=== PATIENT | female | born 1980 | race American Indian/Alaskan Native ===

== ENCOUNTER 2017-03-28 16:36 | Emergency (ER) | payer SELFPAY ==
[2017-03-28] MEDS ORDERED: TRIPLE ANTIBIOTIC TP ONE (18:52)
[2017-03-28] MEDS ORDERED: NORCO 5/325 PO ONE (18:52)
[2017-03-28] MEDS ORDERED: NACL 0.9% IR ONE (18:52)
[2017-03-28] MEDS ORDERED: ZOFRAN ODT PO ONE (18:52)
[2017-03-28] MEDS ORDERED: XYLOCAINE 1% 20 mL INFILTRATI ONE (18:52)
[2017-03-28] MEDS ORDERED: BOOSTRIX IM ONE (18:52)
[2017-03-28] MEDS ORDERED: AUGMENTIN 875 MG PO ONE (18:52)
--- NOTE | 2017-03-28 19:09 | Emergency Department Report ---
ED Animal Bite HPI - General Chief Complaint: Animal Bite Stated Complaint: DOG BITE RT ARM Time Seen by Provider: 03/28/17 18:41 Source: patient Mode of arrival: Ambulatory Limitations: No Limitations - History of Present Illness Initial Comments: PT states she was outside and she saw that her neighbor's 7 month old puppy was stuck in a fence. PT states she tried to help free the dog but she thinks he was in pain and he bit her R arm. PT states she cleanses site twice with peroxide. PT states she applied a dressing. PT states animal control was notified and the dog was taken away. PT states the dog is a pittbull and had shots in November but does not think dog had rabies shot. MD Complaint: animal bite -: Sudden, hour(s) Time: 14:00 Right: Elbow Animal: dog Animal Control Notified: Yes Description: household pet, immunizations unknown Mechanism: bite Pain Description: other (stings ) Context: other Associated Symptoms: bleeding. denies: erythema, loss of consciousness, shortness of breath Treatments Prior to Arrival: wound dressing(s), irrigation, pressure - Related Data Patient Tetanus UTD: No Previous Rx's Medication Instructions Recorded Last Taken Type Amoxicillin/K Clav Tab [Augmentin 1 tab PO Q12HR #14 tab 03/28/17 Unknown Rx 875 mg] Allergies Allergy/AdvReac Type Severity Reaction Status Date / Time No Known Allergies Allergy Unverified 03/28/17 17:57 ED Review of Systems ROS: Stated complaint: DOG BITE RT ARM Other details as noted in HPI Comment: All other systems reviewed and negative Constitutional: no symptoms reported Cardiovascular: other (pt states her bp is elevated because she is nervous ). denies: chest pain Gastrointestinal: denies: abdominal pain, nausea, vomiting Genitourinary: denies: abnormal menses Musculoskeletal: as per HPI Skin: as per HPI ED Past Medical Hx - Past Medical History Previous Medical History?: No Hx Hypertension: No - Surgical History Past Surgical History?: No - Social History Smoking Status: Never Smoker Substance Use Type: Alcohol, Marijuana - Medications Home Medications: Home Medications Medication Instructions Recorded Confirmed Last Taken Type Amoxicillin/K Clav Tab [Augmentin 1 tab PO Q12HR #14 tab 03/28/17 Unknown Rx 875 mg] ED Physical Exam - General Limitations: No Limitations General appearance: alert, in no apparent distress, obese - Head Head exam: Present: atraumatic, normocephalic, normal inspection - Eye Eye exam: Present: normal appearance, PERRL, EOMI. Absent: conjunctival injection - ENT ENT exam: Present: normal exam, mucous membranes moist, normal external ear exam - Neck Neck exam: Present: normal inspection, full ROM - Respiratory Respiratory exam: Present: normal lung sounds bilaterally. Absent: respiratory distress, chest wall tenderness - Cardiovascular Cardiovascular Exam: Present: regular rate, normal rhythm, normal heart sounds - GI/Abdominal GI/Abdominal exam: Present: soft. Absent: tenderness - Extremities Exam Extremities exam: Present: full ROM, tenderness - Expanded Upper Extremity Exam Right Shoulder Exam: Present: normal inspection, full ROM. Absent: tenderness Upper Arm exam: Present: normal inspection, full ROM. Absent: tenderness Elbow exam: Present: full ROM, tenderness, swelling, laceration (2 cm gaping laceration to the lateral aspect of the elbow ), ecchymosis Forearm Wrist exam: Present: normal inspection, full ROM Vascular: Present: radial pulse - Back Exam Back exam: Present: normal inspection, full ROM - Neurological Exam Neurological exam: Present: alert, oriented X3, normal gait - Psychiatric Psychiatric exam: Present: normal affect, normal mood - Skin Skin exam: Present: warm, dry, rash (papular rash to lakisha lower arms ), ecchymosis. Absent: intact, urticaria, vesicles ED Course Vital Signs 03/28/17 03/28/17 03/28/17 17:57 19:07 19:23 Temperature 98.3 F Pulse Rate 81 Respiratory 18 18 18 Rate Blood Pressure 180/103 Blood Pressure [Left] O2 Sat by Pulse 100 Oximetry 03/28/17 20:47 Temperature Pulse Rate 64 Respiratory 18 Rate Blood Pressure Blood Pressure 188/106 [Left] O2 Sat by Pulse 98 Oximetry - Reevaluation(s) Reevaluation #1: 03/28/17 20:29 PT tolerated laceration repair well. pt given verbal instructions on suture care. PT has no questions at this time. 03/28/17 20:29 PT refused Rabies vaccines and immunoglobulin. PT instructed to return to ed if she wishes to initial treatment - Laceration /Wound Repair Right Lateral Elbow Wound Location: upper extremity (R elbow ) Wound Length (cm): 2 Wound's Depth, Shape: superficial (adipose tissue exposed ) Wound Explored: no foreign body removed Irrigated w/ Saline (ccs): 250 Betadine Prep?: Yes Anesthesia: 1% Lidocaine Volume Anesthetic (ccs): 3 Wound Debrided: minimal Wound Repaired With: sutures Suture Size/Type: 3:0 Number of Sutures: 2 (loosely ) Layer Closure?: No Sterile Dressing Applied?: Yes Progress: PT's skin cleansed with betadine. 1% lidocaine used to anesthetize the area. site cleansed with betadine. flushed with NS. 2 loose simple interrupted sutures placed. pt tolerated the procedure well, no immediate complications - Pulse Oximetry Interpretation Digit-Finger Initial Pulse Oximetry Readin Actions Taken: none Critical Care Time: No Critical care attestation.: If time is entered above; I have spent that time in minutes in the direct care of this critically ill patient, excluding procedure time. ED Disposition Clinical Impression: Need for Tdap vaccination, Elevated BP without diagnosis of hypertension Dog bite of right elbow Qualifiers: Encounter type: initial encounter Qualified Code(s): S51.051A - Open bite, right elbow, initial encounter Disposition: DC- TO HOME OR SELFCARE Is pt being admited?: No Does the pt Need Aspirin: No Condition: Stable Instructions: Animal Bite (ED), Suture Care (ED), Laceration (ED) Additional Instructions: Return to ED in 2 days for recheck of sutures. Suture removal in 10- 14 days Return sooner if redness, swelling, drainage, fevers Follow up with PCP in 3-5 days for bp recheck IF you wish to be vaccinated against Rabies, return to ED to start treatment please refrain from smoking - it delays wound healing Prescriptions: Amoxicillin/K Clav Tab [Augmentin 875 mg] 1 tab PO Q12HR #14 tab Referrals: PRIMARY CAREMD [Primary Care Provider] - 3-5 Days SUZANNE FERNANDES MD [Staff Physician] - 3-5 Days [facility] [Outside] - 3-5 Days [facility] [Outside] - 3-5 Days Forms: Work/School Release Form(ED) Time of Disposition: 20:37
--- NOTE | 2017-03-28 19:56 | XRay Report ---
FINAL REPORT PROCEDURE: Right elbow. TECHNIQUE: AP and lateral views. HISTORY: Dog bite. COMPARISON: No prior studies are available for comparison. FINDINGS: The bones appear intact without fracture or dislocation. The joint spaces appear normal. The soft tissues are unremarkable. There are no radiopaque foreign bodies. IMPRESSION: Normal study.
[2017-03-28 20:48] VITALS: BP 188/106
== END 2017-03-28 20:48 | disposition home or self-care (01) ==
LOC: ED 16:36
DX: S51.051A Open bite, right elbow, initial encounter (principal); R03.0 Elevated blood-pressure reading, without diagnosis of hypertension; F12.90 Cannabis use, unspecified, uncomplicated; Z23 Encounter for immunization; W54.0XXA Bitten by dog, initial encounter; Y93.89 Activity, other specified; Y99.9 Unspecified external cause status; Y92.89 Other specified places as the place of occurrence of the external cause
CPT/HCPCS: 90471; 90715; A6250; Q0162

== ENCOUNTER 2017-03-30 10:33 | Emergency (ER) | payer SELFPAY ==
[2017-03-30 12:10] LABS: Basophils % (Auto) 0.9 % (0.0-1.8); Hematocrit 37.5 % (30.3-42.9); Hemoglobin 12.3 gm/dl (10.1-14.3); Mean Corpuscular HGB Conc 33 % (30-34); Mean Corpuscular Hemoglobin 28 pg (28-32); Mean Corpuscular Volume 86 fl (79-97); Platelet Count 341 K/mm3 (140-440); Red Blood Count 4.36 M/mm3 (3.65-5.03); Red Cell Distribution Width 16.1 % (13.2-15.2)
[2017-03-30 12:18] LABS: Alanine Aminotransferase 20 units/L (7-56); Alkaline Phosphatase 68 units/L (35-129); BUN/Creatinine Ratio 13.75; Blood Urea Nitrogen 11 mg/dL (7-17); Calcium 8.8 mg/dL (8.4-10.2); Carbon Dioxide 29 mmol/L (22-30); Glucose 97 mg/dL (65-100); Total Protein 8.1 g/dL (6.3-8.2)
[2017-03-30 12:19] LABS: Anion Gap 14 mmol/L; Chloride 97.2 mmol/L (98-107); Potassium 4.1 mmol/L (3.6-5.0); Sodium 136 mmol/L (137-145)
--- NOTE | 2017-03-30 12:33 | Emergency Department Report ---
Entered by JAIMEE FARRIS, acting as scribe for ARIELLE REGALADO NP. Chief Complaint: Laceration/Recheck/Suture Stated Complaint: F/U - DOG BITE Time Seen by Provider: 03/30/17 11:23 - HPI History of Present Illness: 36 year old male with no significant PMHx presents to the ED with recheck on sutures from a dog bit on her right arm 2 days ago. Patient recently had 1 suture removed and is here today for a follow up. Patient reports HTN, but denies fever, chills, SOB, chest pain, nausea, vomiting, numbness, and tingling. Her dogs are UTD on shots. FHx of HTN and OH. here for fu from dog bite but bp elevated off her meds no piper no cp no sob does not have md dt cost will check end organ and reeval - ROS Review of Systems: Reports HTN. Denies fever, chills, SOB, chest pain, nausea, vomiting, numbness, and tingling. - Exam Vital Signs: Vital Signs 03/30/17 11:12 Temperature 98.4 F Pulse Rate 75 Respiratory 20 Rate Blood Pressure 183/113 O2 Sat by Pulse 98 Oximetry MSE screening note: Focused history and physical exam performed. Due to findings the following was ordered: CBC, comprehensive metabolic, HCG qualitative serum was ordered for patient. ED Medical Decision Making - Lab Data Result diagrams: 03/30/17 11:41 03/30/17 11:41 ED Disposition for MSE Condition: Stable This documentation as recorded by the scribe,JAIMEE FARRIS,accurately reflects the service I personally performed and the decisions made by ,ARIELLE REGALADO NP.
--- NOTE | 2017-03-30 13:07 | Emergency Department Report ---
- General Chief Complaint: Laceration/Recheck/Suture Stated Complaint: F/U - DOG BITE Time Seen by Provider: 03/30/17 13:01 Source: patient Mode of arrival: Ambulatory Limitations: No Limitations - History of Present Illness -: days(s) (2) Location: other (ra) Extremity Location: Right: Arm Place: home Patient Tetanus UTD: Yes Context: other (her dog) Associated Symptoms: none Treatments Prior to Arrival: other (taking her augment) - Related Data Previous Rx's Medication Instructions Recorded Last Taken Type Amoxicillin/K Clav Tab [Augmentin 1 tab PO Q12HR #14 tab 03/28/17 Unknown Rx 875MG TAB] Hydrochlorothiazide [HCTZ] 25 mg PO QDAY #30 tablet 03/30/17 Unknown Rx Allergies Allergy/AdvReac Type Severity Reaction Status Date / Time No Known Allergies Allergy Unverified 03/28/17 17:57 ED Review of Systems ROS: Stated complaint: F/U - DOG BITE Other details as noted in HPI Comment: All other systems reviewed and negative Constitutional: no symptoms reported, see HPI Eyes: as per HPI ENT: as per HPI Respiratory: no symptoms reported, see HPI. denies: cough, orthopnea, shortness of breath, SOB with exertion, SOB at rest, stridor Cardiovascular: as per HPI. denies: chest pain, palpitations, dyspnea on exertion, orthopnea, edema, syncope, paroxysmal nocturnal dyspnea Endocrine: no symptoms reported, see HPI. denies: excessive sweating, flushing , intolerance to cold, intolerance to heat Gastrointestinal: as per HPI. denies: abdominal pain, nausea, vomiting Genitourinary: as per HPI. denies: urgency, dysuria Musculoskeletal: as per HPI. denies: back pain Skin: as per HPI. denies: rash, lesions Neurological: as per HPI. denies: headache, weakness, numbness, paresthesias, confusion, abnormal gait Psychiatric: as per HPI. denies: anxiety, depression Hematological/Lymphatic: as per HPI. denies: easy bleeding ED Past Medical Hx - Past Medical History Previous Medical History?: Yes Hx Hypertension: Yes (does not take meds. she has had them in the past. ) - Surgical History Past Surgical History?: No - Family History Family history: CAD/AL (dad young w mi), other (mom a/w) - Social History Smoking Status: Current Every Day Smoker Substance Use Type: Alcohol, Marijuana, Prescribed - Medications Home Medications: Home Medications Medication Instructions Recorded Confirmed Last Taken Type Amoxicillin/K Clav Tab [Augmentin 1 tab PO Q12HR #14 tab 03/28/17 Unknown Rx 875MG TAB] Hydrochlorothiazide [HCTZ] 25 mg PO QDAY #30 tablet 03/30/17 Unknown Rx ED Physical Exam - General Limitations: No Limitations General appearance: alert, in no apparent distress - Eye Eye exam: Present: normal appearance, PERRL, EOMI - ENT ENT exam: Present: normal exam, mucous membranes moist - Neck Neck exam: Present: normal inspection. Absent: tenderness, meningismus - Respiratory Respiratory exam: Present: normal lung sounds bilaterally. Absent: respiratory distress, wheezes, rales, rhonchi, stridor, chest wall tenderness, accessory muscle use, decreased breath sounds, prolonged expiratory - Cardiovascular Cardiovascular Exam: Present: regular rate, normal rhythm, normal heart sounds. Absent: bradycardia, tachycardia, irregular rhythm, systolic murmur, diastolic murmur, rubs - GI/Abdominal GI/Abdominal exam: Present: soft, normal bowel sounds. Absent: distended, tenderness, guarding, rebound, rigid, diminished bowel sounds - Rectal Rectal exam: Present: deferred - Extremities Exam Extremities exam: Present: normal inspection, full ROM, normal capillary refill. Absent: pedal edema, joint swelling, calf tenderness - Back Exam Back exam: Present: normal inspection, full ROM. Absent: tenderness, CVA tenderness (R), CVA tenderness (L) - Neurological Exam Neurological exam: Present: alert, altered, oriented X3, CN II-XII intact, normal gait, reflexes normal. Absent: motor sensory deficit - Expanded Neurological Exam Expanded Patient oriented to: Present: person, place, time Speech: Present: fluid speech Cranial nerves: EOM's Intact: Normal, Gag Reflex: Normal, Tongue Deviation: Normal, Nystagmus: Normal, Facial Sensation: Normal Upper motor neuron: Pronator Drift: Normal Motor strength exam: RUE: 5, LUE: 5, RLE: 5, LLE: 5 Best Eye Response ([place]): (4) open spontaneously Best Motor Response ([place]): (6) obeys commands Best Verbal Response ([place]): (5) oriented [place] Total: 15 - Psychiatric Psychiatric exam: Present: normal affect, normal mood. Absent: depressed, agitated - Skin Skin exam: Present: warm, dry, intact, normal color. Absent: rash, cyanosis, diaphoretic, erythema, urticaria, vesicles - Other Other exam information: r upper arm dog bite sutures in place no s/s infection too early for sutures to come out taking aug wound care provided pt given wound care instructions cont anbx fu here as discussed on dc for removal of sutures ED Course Vital Signs 03/30/17 03/30/17 11:12 13:29 Temperature 98.4 F Pulse Rate 75 Respiratory 20 20 Rate Blood Pressure 183/113 Blood Pressure 198/110 [Left] O2 Sat by Pulse 98 Oximetry - Reevaluation(s) Reevaluation #1: here for wound check dog bite r a her dog, utd on shots 2 sutures in arm. not ready to come out- only been 2 days bruised but no redness, swelling, pain or purulent dc. full rom incidental inc in bp htn no meds- no pcp no piper no cp no sob will check end organ fx 03/30/17 13:05 labs noted wound cleaned Discussed with Dr Agnes Santacruz- htn and bite- ok to dc w rx dc home w hctz referral to pcp fu here for suture removal in apporx 5 days discussed bp w pt and she verbalizes understanding of need to for bp and diet modication on dc no cp or sob. ED Medical Decision Making - Lab Data Result diagrams: 03/30/17 11:41 03/30/17 11:41 - Medical Decision Making cr n labs noted no cp no sob wound care hctz w pcp referral - Differential Diagnosis ro end organ dysfunction from htn Critical care attestation.: If time is entered above; I have spent that time in minutes in the direct care of this critically ill patient, excluding procedure time. ED Disposition Clinical Impression: Dog bite of right elbow, Hypertension Disposition: DC-01 TO HOME OR SELFCARE Is pt being admited?: No Does the pt Need Aspirin: No Condition: Stable Instructions: Animal Bite (ED), Heart Healthy Diet (ED), Chronic Hypertension ( ED), DASH Eating Plan (ED), Low Sodium Diet (ED), Hypertension (ED) Additional Instructions: keep wound clean and dry. wash with soap and water twice per day cover when out and doing errands may leave open to air when at home return in approx 5 days for those 2 sutures to be removed hctz daily in am follow up with pcp for eval of bp Prescriptions: Hydrochlorothiazide [HCTZ] 25 mg PO QDAY #30 tablet Referrals: [facility] [Outside] - 3-5 Days KARIS JORDAN MD, PHD [Staff Physician] - 3-5 Days Forms: Work/School Release Form(ED) Time of Disposition: 13:08
[2017-03-30 13:44] VITALS: BP 198/110
== END 2017-03-30 13:40 | disposition home or self-care (01) ==
LOC: ED 10:33
DX: S51.051D Open bite, right elbow, subsequent encounter (principal); I10 Essential (primary) hypertension; F12.10 Cannabis abuse, uncomplicated; F17.210 Nicotine dependence, cigarettes, uncomplicated; W54.0XXD Bitten by dog, subsequent encounter
CPT/HCPCS: 36415; 80053; 84703; 85025; 99283

== ENCOUNTER 2019-08-14 05:16 | Emergency (ER) | payer SELFPAY ==
[2019-08-14] MEDS ORDERED: ONDANSETRON 4 MG ODT TAB PO ONE (05:56)
[2019-08-14] MEDS ORDERED: HYDROcodone/ACETAMINOPHEN 10-325MG TAB PO ONE (05:56)
--- NOTE | 2019-08-14 06:01 | Emergency Department Report ---
ED General Adult HPI - General Chief complaint: Dental/Oral Stated complaint: TOOTHACHE Time Seen by Provider: 08/14/19 05:45 Source: patient Mode of arrival: Ambulatory Limitations: No Limitations - History of Present Illness Initial comments: The patient presents to the emergency department with a chief complaint of right lower toothache. Patient states that she had pain months ago but it returned yesterday. Patient describes the pain as sharp and intense in nature and worse by cold air or cold liquids. Patient denies fever, chest pain, headache. -: Sudden Severity scale (0 -10): 8 Consistency: constant Improves with: none Worsens with: eating Associated Symptoms: denies other symptoms Treatments Prior to Arrival: none - Related Data Previous Rx's Medication Instructions Recorded Last Taken Type Amoxicillin/K Clav Tab [Augmentin 1 tab PO Q12HR #14 tab 03/28/17 Unknown Rx 875MG TAB] hydroCHLOROthiazide [HCTZ] 25 mg PO QDAY #30 tablet 03/30/17 Unknown Rx HYDROcodone/APAP 5-325 [[place] 1 each PO Q6HR PRN #12 tablet 08/14/19 Unknown Rx 5/325] Ibuprofen [Motrin] 800 mg PO Q8HR PRN #30 tablet 08/14/19 Unknown Rx Penicillin V Potassium 500 mg PO TID #21 tablet 08/14/19 Unknown Rx Allergies Allergy/AdvReac Type Severity Reaction Status Date / Time No Known Allergies Allergy Unverified 03/28/17 17:57 ED Review of Systems ROS: Stated complaint: TOOTHACHE Other details as noted in HPI Constitutional: denies: chills, fever Eyes: denies: eye pain, eye discharge, vision change ENT: dental pain. denies: ear pain, throat pain Respiratory: denies: cough, shortness of breath, wheezing Cardiovascular: denies: chest pain, palpitations Endocrine: no symptoms reported Gastrointestinal: denies: abdominal pain, nausea, diarrhea Genitourinary: denies: urgency, dysuria, discharge Musculoskeletal: denies: back pain, joint swelling, arthralgia Skin: denies: rash, lesions Neurological: denies: headache, weakness, paresthesias Psychiatric: denies: anxiety, depression Hematological/Lymphatic: denies: easy bleeding, easy bruising ED Past Medical Hx - Past Medical History Previous Medical History?: Yes Hx Hypertension: Yes (does not take meds. she has had them in the past. ) - Surgical History Past Surgical History?: No - Social History Smoking Status: Never Smoker - Medications Home Medications: Home Medications Medication Instructions Recorded Confirmed Last Taken Type Amoxicillin/K Clav Tab [Augmentin 1 tab PO Q12HR #14 tab 03/28/17 Unknown Rx 875MG TAB] hydroCHLOROthiazide [HCTZ] 25 mg PO QDAY #30 tablet 03/30/17 Unknown Rx HYDROcodone/APAP 5-325 [[place] 1 each PO Q6HR PRN #12 tablet 08/14/19 Unknown Rx 5/325] Ibuprofen [Motrin] 800 mg PO Q8HR PRN #30 tablet 08/14/19 Unknown Rx Penicillin V Potassium 500 mg PO TID #21 tablet 08/14/19 Unknown Rx ED Physical Exam - General Limitations: No Limitations General appearance: alert, in no apparent distress - Head Head exam: Present: atraumatic, normocephalic - Eye Eye exam: Present: normal appearance - ENT ENT exam: Present: mucous membranes moist, other (patient has multiple dental caries of the right lower molars with decay of the first molar. No dental abscess on exam) - Neck Neck exam: Present: normal inspection - Extremities Exam Extremities exam: Present: normal inspection - Back Exam Back exam: Present: normal inspection - Neurological Exam Neurological exam: Present: alert, oriented X3 - Psychiatric Psychiatric exam: Present: normal affect, normal mood - Skin Skin exam: Present: warm, dry, intact, normal color. Absent: rash ED Course Vital Signs 08/14/19 08/14/19 05:21 05:35 Temperature 98.5 F 97.9 F Pulse Rate 100 H 97 H Respiratory 18 17 Rate Blood Pressure 211/128 Blood Pressure 189/111 [Left] O2 Sat by Pulse 99 100 Oximetry ED Medical Decision Making - Medical Decision Making Patient states that she has blood pressure medication at home and did not take this morning. Critical care attestation.: If time is entered above; I have spent that time in minutes in the direct care of this critically ill patient, excluding procedure time. ED Disposition Clinical Impression: Odontalgia Disposition: - TO HOME OR SELFCARE Is pt being admited?: No Does the pt Need Aspirin: No Condition: Stable Instructions: Dental Caries (ED), Toothache (ED) Additional Instructions: return if worse Referrals: [facility] [Outside] - 3-5 Days Time of Disposition: 05:59
[2019-08-14 06:02] VITALS: BP 180/96
== END 2019-08-14 06:39 | disposition home or self-care (01) ==
LOC: ED 05:16
DX: K08.89 Other specified disorders of teeth and supporting structures (principal); I10 Essential (primary) hypertension; Z79.899 Other long term (current) drug therapy
CPT/HCPCS: Q0162